=== PATIENT | male | born 1940 | race African-American/Black ===

== ENCOUNTER 2017-07-22 09:28 | Emergency (ER) | payer MEDICARE, OTHER ==
[2017-07-22] MEDS ORDERED: Albuterol Sulfate 2.5 mg/3 ml Neb ONE (10:22)
[2017-07-22] MEDS ORDERED: Sodium Chloride For Inhalation 0.9% 3 ML NEB ONE (10:23)
--- NOTE | 2017-07-22 10:38 | RAD ---
PA AND LATERAL CHEST: History: Cough. FINDINGS: Heart size is within normal limits. There are atherosclerotic changes of the aorta. Lungs are clear o f infiltrates. There are arthritic changes of the spine. IMPRESSION: No active intrathoracic disease. POS: [facility]
== END 2017-07-22 11:03 | disposition home or self-care (01) ==
LOC: SCSER 09:28
DX: J06.9 Acute upper respiratory infection, unspecified (principal); J20.9 Acute bronchitis, unspecified; I10 Essential (primary) hypertension; E78.5 Hyperlipidemia, unspecified; Z87.891 Personal history of nicotine dependence; Z79.82 Long term (current) use of aspirin; Z79.899 Other long term (current) drug therapy; Z79.891 Long term (current) use of opiate analgesic
CPT/HCPCS: 71046; 94640; 94664; J7611

== ENCOUNTER 2018-06-10 13:58 | Emergency (ER) | payer MEDICARE, OTHER ==
[2018-06-10 15:16] LABS: Bilirubin Moderate (Negative); Blood, Urine Trace (Negative); Clarity Clear (Clear); Glucose, Urine (Dipstick) Negative (Negative); Leukocyte Negative (Negative); Nitrite Negative (Negative); Protein, Urine (Dipstick) 30 mg/dL (Neg-Trace); pH, Urine 5.5 (5.0-9.0)
[2018-06-10 15:18] LABS: #Basophils 0.1 thou/uL (0.0-0.2); #Lymphocytes 1.2 thou/uL (1.20-3.40); #Monocytes 0.6 thou/uL (0.11-0.59); #Neutrophils 4.4 thou/uL (1.40-6.50); %Basophils 1.2 % (0.0-1.0); %Eosinophils 0.3 % (0.0-10.0); %Lymphocytes 19.3 % (21.0-51.0); %Monocytes 8.9 % (0.0-10.0); %Neutrophils 70.4 % (42.0-75.0); Hemoglobin 12.3 g/dL (14.0-18.0); Mean Corpuscular Hemoglobin 31.7 pg (27.0-31.0); Mean Corpuscular Volume 99.2 fL (78.0-98.0); Mean Platelet Volume 7.6 fL (7.4-10.4); Platelet Count 202 thou/uL (130-400); RBC Distribution Width 13.1 % (11.5-14.5); Red Blood Cell (RBC) Count 3.88 mill/uL (4.70-6.10); White Blood Cell (WBC) Count 6.3 thou/uL (4.8-10.8)
--- NOTE | 2018-06-10 15:22 | RAD ---
PORTABLE CHEST: History: Cough, fever. FINDINGS: Heart size and mediastinum are within normal limits. The lungs are clear of any infiltrative process. There are arthritic changes of the shoulders. IMPRESSION: No active intrathoracic disease. POS: [facility]
[2018-06-10 15:24] LABS: Specific Gravity, Urine 1.032 (1.002-1.036)
[2018-06-10 15:30] LABS: ALT (SGPT) 19 U/L (8-55); AST (SGOT) 25 U/L (5-34); Albumin 3.9 g/dL (3.4-4.8); Alkaline Phosphatase 54 U/L (40-150); Anion Gap 14 mmol/L (10-20); BUN (Urea Nitrogen) 18 mg/dL (8.4-25.7); Bilirubin, Total 1.1 mg/dL (0.2-1.2); Calc. Creatinine Clearance 0 mL/min (70-130); Calcium 9.6 mg/dL (7.8-10.44); Carbon Dioxide 29 mmol/L (23-31); Chloride 103 mmol/L (98-107); Estimated GFR-MDRD 50; Globulin 3.6 g/dL (2.4-3.5); Glucose 112 mg/dL (83-110); Potassium 3.6 mmol/L (3.5-5.1); Protein, Total 7.5 g/dL (5.8-8.1); Sodium 142 mmol/L (136-145)
[2018-06-10 15:30] LABS: Bacteria/HPF Rare-Few HPF (None Seen); Hyaline Casts/LPF 4-6 HYALINE CAST LPF (0-3 Hyaline); Other Casts/LPF 0-3 FINELY GRAN LPF (0-3 Hyaline); RBC/HPF 0-3 HPF (0-3); Squamous Epithelial 0-3 HPF (0-3)
== END 2018-06-10 15:52 | disposition home or self-care (01) ==
LOC: SCSER 13:58
DX: R19.7 Diarrhea, unspecified (principal); R53.81 Other malaise; R11.2 Nausea with vomiting, unspecified
CPT/HCPCS: 36415; 71045; 80053; 81003; 81015; 83605; 85025; 87040; 87804

== ENCOUNTER 2018-07-09 09:58 | Outpatient (CLI) | payer MEDICARE, OTHER ==
[2018-07-09 11:16] LABS: Bilirubin Negative (Negative); Blood, Urine Negative (Negative); Clarity Clear (Clear); Glucose, Urine (Dipstick) Negative (Negative); Leukocyte Negative (Negative); Nitrite Negative (Negative); Protein, Urine (Dipstick) Trace mg/dL (Neg-Trace); Specific Gravity, Urine 1.015 (1.005-1.030)
[2018-07-09 11:23] LABS: Hemoglobin 11.9 g/dL (14.0-18.0); Mean Corpuscular HGB CONC 31.2 g/dL (32.0-36.0); Mean Corpuscular Hemoglobin 32.4 pg (27.0-31.0); Mean Platelet Volume 7.8 fL (7.4-10.4); Platelet Count 182 thou/uL (130-400); RBC Distribution Width 14.2 % (11.5-14.5); Red Blood Cell (RBC) Count 3.68 mill/uL (4.70-6.10); White Blood Cell (WBC) Count 6.6 thou/uL (4.8-10.8)
[2018-07-09 11:25] LABS: ALT (SGPT) 12 U/L (8-55); AST (SGOT) 20 U/L (5-34); Albumin 3.9 g/dL (3.4-4.8); Alkaline Phosphatase 52 U/L (40-150); Anion Gap 15 mmol/L (10-20); BUN (Urea Nitrogen) 18 mg/dL (8.4-25.7); Bilirubin, Total 0.9 mg/dL (0.2-1.2); CK (CPK) 138 U/L (30-200); CRP (Inflammatory) Less than 0.50 mg/dL (= or < 0.5); Calc. Creatinine Clearance 0 mL/min (70-130); Calcium 9.4 mg/dL (7.8-10.44); Carbon Dioxide 28 mmol/L (23-31); Cardiac Risk 3.3 (Less than 4.5); Chloride 102 mmol/L (98-107); Cholesterol 247 mg/dl (< 200 Desired); Estimated GFR-MDRD 75; Globulin 3.3 g/dL (2.4-3.5); Glucose 81 mg/dL (83-110); HDL Cholesterol 74 mg/dL (>60 Neg Risk); LDL Cholesterol, Calculated 154 mg/dL; Potassium 3.9 mmol/L (3.5-5.1); Protein, Total 7.2 g/dL (5.8-8.1); Sodium 141 mmol/L (136-145); Triglycerides 93 mg/dL (Less than 150); Uric Acid 5.6 mg/dL (3.5-7.2)
--- NOTE | 2018-07-09 11:40 | RAD ---
FRONTAL VIEW CHEST: Date: 07/09/18 COMPARISON: 06/10/18. INDICATINO: Abnormal weight loss, weakness. FINDINGS: The lungs are clear. There is hyperinflation of the lungs. Cardiac silhouette is normal in size. Incidental note of small volume of air density underlying left hemidiaphragm adjacent to distended lo ops of air-filled bowel at the left upper quadrant. There is osseous degenerative change. IMPRESSION: 1. COPD. 2. Air density underlying hemidiaphragm, for which free intraperitoneal air cannot be excluded on th e basis of this exam. Recommend CT of the abdomen and pelvis for more definitive characterization. These findings were telephoned to the patient's physician, Felicita Juarez, at the time of dictatio n, 1021 hours, on 07/09/18. CODE CR. POS: [facility]
[2018-07-09 12:29] LABS: Hemoglobin A1c 5.5 % (4.0-6.0)
[2018-07-09 12:32] LABS: Free T4 (Free Thyroxine) 0.96 ng/dL (0.70-1.48); PSA-Symptomatic (DIAGNOSTIC) 0.13 ng/mL (0-4.0); Thyroid Stimulating Hormone 1.4596 uIU/mL (0.35-4.94)
[2018-07-09 12:33] LABS: Iron 51 ug/dL (65-175); Iron Binding Capacity, Total 214 mcg/dL (261-462)
[2018-07-09 12:39] LABS: Creatinine, Urine 198.19 mg/dL (63-166); Microalbumin Urine 1.5 mg/dL (0.5-50.0); Microalbumin/Creat Ratio 7.6 mg/g (Less than 30)
[2018-07-09 12:50] LABS: Ferritin 538.56 ng/mL (22-322); Syphilis Antibody Nonreactive (Nonreactive); Syphilis Antibody Index 0.05 S/CO (<1.00 Non-Reactive)
[2018-07-09 13:05] LABS: Vitamin B12 Greater than 2000 pg/mL (211-911)
[2018-07-09 15:59] LABS: ANA Symphony (Qualitative) Negative (Negative); ANA Symphony (Quantitative) Less than 0.1 Ratio (< 0.7 Negative); CCP IgG Antibody 0.9 EliAU/mL (<7 Negative); EliA RAS New Method **** NEW METHOD ****; Rheumatoid Factor IgA Antibody 2.4 IU/mL (<14 Negative); Rheumatoid Factor IgM Antibody Less than 0.5 IU/mL (<3.5 Negative); dsDNA IgG Antibody Less than 0.5 IU/mL (<10 Negative)
== END 2018-07-09 09:59 | disposition home or self-care (01) ==
LOC: SCSRAD 09:58
PROVIDERS: ATTEND Internal Medicine
DX: R63.4 Abnormal weight loss (principal); C61 Malignant neoplasm of prostate; R73.9 Hyperglycemia, unspecified; R53.83 Other fatigue; I10 Essential (primary) hypertension; E55.9 Vitamin D deficiency, unspecified; R25.1 Tremor, unspecified; C60.9 Malignant neoplasm of penis, unspecified; J44.9 Chronic obstructive pulmonary disease, unspecified; J98.6 Disorders of diaphragm; Z79.899 Other long term (current) drug therapy; Z87.891 Personal history of nicotine dependence; Z91.81 History of falling
CPT/HCPCS: 36415; 71046; 74176; 80053; 80061; 81003; 82043; 82306; 82550; 82607; 82728; 82746; 83036; 83520; 83540; 83550; 83690; 84153; 84165; 84439; 84443; 84550; 85027; 85652; 86038; 86140; 86200; 86225; 86780; 87086

== ENCOUNTER 2018-07-09 13:57 | Emergency (ER) | payer MEDICARE, OTHER ==
[2018-07-09 14:55] LABS: #Basophils 0.1 thou/uL (0.0-0.2); #Eosinphils 0.1 thou/uL (0.0-0.7); #Monocytes 0.6 thou/uL (0.11-0.59); #Neutrophils 3.6 thou/uL (1.40-6.50); %Basophils 1.4 % (0.0-1.0); %Eosinophils 1.4 % (0.0-10.0); %Lymphocytes 18.8 % (21.0-51.0); %Monocytes 11.5 % (0.0-10.0); %Neutrophils 66.9 % (42.0-75.0); Hemoglobin 10.7 g/dL (14.0-18.0); Mean Corpuscular HGB CONC 31.9 g/dL (32.0-36.0); Mean Corpuscular Hemoglobin 32.7 pg (27.0-31.0); Mean Platelet Volume 6.3 fL (7.4-10.4); Platelet Count 161 thou/uL (130-400); RBC Distribution Width 13.9 % (11.5-14.5); Red Blood Cell (RBC) Count 3.26 mill/uL (4.70-6.10); White Blood Cell (WBC) Count 5.4 thou/uL (4.8-10.8)
[2018-07-09 15:11] LABS: ALT (SGPT) 12 U/L (8-55); AST (SGOT) 18 U/L (5-34); Albumin 3.6 g/dL (3.4-4.8); Alkaline Phosphatase 48 U/L (40-150); Anion Gap 12 mmol/L (10-20); BUN (Urea Nitrogen) 18 mg/dL (8.4-25.7); Bilirubin, Total 0.8 mg/dL (0.2-1.2); Calc. Creatinine Clearance 0 mL/min (70-130); Calcium 8.9 mg/dL (7.8-10.44); Carbon Dioxide 29 mmol/L (23-31); Chloride 103 mmol/L (98-107); Estimated GFR-MDRD 71; Globulin 2.9 g/dL (2.4-3.5); Glucose 108 mg/dL (83-110); Lipase 16 U/L (8-78); Potassium 3.3 mmol/L (3.5-5.1); Protein, Total 6.5 g/dL (5.8-8.1); Sodium 141 mmol/L (136-145)
--- NOTE | 2018-07-09 16:02 | CT ---
CT ABDOMEN AND PELVIS NONCONTRAST: HISTORY: Abnormal chest radiograph. Possible free air. Chest and abdomen pain. COMPARISON: A chest radiograph was obtained earlier on the same date. FINDINGS: The lungs bases are clear. There is no free air within the peritoneal cavity. Each renal collecting system, ureter, and urinary bladder are decompressed without stone evident. Po stoperative changes of the prostate bed. Lack of contrast limits evaluation of the soft tissues. No evidence of bowel obstruction. Prominent degenerative changes of the lumbar spine. IMPRESSION: No CT evidence of free intraperitoneal gas or other acute abnormalities. The findings were called to Dr. Monsalve in the [facility] at 1540 hours. CODE CR POS: [facility]
== END 2018-07-09 15:56 | disposition home or self-care (01) ==
LOC: SCSER 13:57
DX: K59.00 Constipation, unspecified (principal); I10 Essential (primary) hypertension; E78.5 Hyperlipidemia, unspecified; Z87.891 Personal history of nicotine dependence; Z79.82 Long term (current) use of aspirin; Z79.899 Other long term (current) drug therapy
CPT/HCPCS: 36415; 74176; 83690

== ENCOUNTER 2018-07-12 10:12 | Outpatient (CLI) | payer MEDICARE, OTHER ==
--- NOTE | 2018-07-12 15:41 | NM ---
WHOLE BODY BONE SCAN: HISTORY: Malignant neoplasm of prostate, low back and hip pain. RADIOPHARMACEUTICAL: 32.3 mCi Technetium 99m-MDP injected intravenously. FINDINGS: Correlation is made with the CT abdomen and pelvis of 07/09/2018. Increased uptake in the thoracolumbar spine is consistent with degenerative changes noted on the CT s can. Focal increased uptake in the lateral aspect of the right mid lumbar spine corresponds to the b ridging osteophytes on the CT scan. Increased uptake due to degenerative changes noted in the shoulders, elbows, wrists, and feet. No ot her abnormal areas of tracer localization are seen in the skeleton to suggest osseous metastatic dise ase. Tracer excretion through the kidneys is within normal limits. IMPRESSION: No evidence of osseous metastatic disease. POS: [facility]
== END 2018-07-12 10:13 | disposition home or self-care (01) ==
LOC: NM 10:12
PROVIDERS: ATTEND Internal Medicine
DX: C61 Malignant neoplasm of prostate (principal); R63.4 Abnormal weight loss; M54.9 Dorsalgia, unspecified
CPT/HCPCS: 78306; A9503

== ENCOUNTER 2018-11-23 12:07 | Outpatient (CLI) | payer MEDICARE, OTHER ==
--- NOTE | 2018-11-25 16:26 | PFT ---
PATIENT HISTORY: HEIGHT: 71 IN WEIGHT: 187 SMOKER: NO HOW LON YRS PACKS PER DAY: 1 PRODUCTIVE COUGH: LUNG DISEASE: PHYSICIAN INTERPRETATION FINAL REPORT: Patient had fair effort and good cooperation. That being said, patient could not use the scuba moth piece so only filter was used. This could have created a leak during nitrogen washout, and patient could not get in body box for pleth testing. PFT data: FVC 3.71 (991%), FEV1 3.18 (108%), FEV1/FVC 0.86. FRC 4.45 (130%), RV 0.3.36 (125%), TLC 7.12 (107%). DLCO 12.94 (48%). The FEV1 and FVC fall with in the normal limits. The ratio is also normal suggesting there is no evidence of obstructive air flow limitation. The FRC, RV may be artifactually elevated. The Total Lung Capacity fall with in the normal limits. Diffusion capacity is reduced. IMPRESSION: Overall, these pulmonary function studies are most consistent with normal spirometry, possible air trapping, artifact needs to be considered, and moderately reduced gas exchange. Clinical and radiographic correlation for pulmonary vascular disorder should be considered. Seed Potato Cutter: ELEAZAR Data Collection Specialist: ELEAZAR PUGH
== END 2018-11-23 12:08 | disposition home or self-care (01) ==
LOC: CP 12:07
PROVIDERS: ATTEND Internal Medicine Critical Care Medicine
DX: J44.9 Chronic obstructive pulmonary disease, unspecified (principal); G47.33 Obstructive sleep apnea (adult) (pediatric)
CPT/HCPCS: 94060; 94727; 94729

== ENCOUNTER 2018-12-22 19:30 | Outpatient (CLI) | payer MEDICARE, OTHER | END 2018-12-22 19:31 | disposition home or self-care (01) | LOC: SLEEPLAB 19:30 | PROVIDERS: ATTEND Internal Medicine Critical Care Medicine | DX: G47.33 Obstructive sleep apnea (adult) (pediatric) (principal); R09.89 Other specified symptoms and signs involving the circulatory and respiratory systems; R53.83 Other fatigue | CPT/HCPCS: 95811 ==

== ENCOUNTER 2021-01-24 | Outpatient (CLI) | payer MEDICARE, OTHER | END 2021-01-24 09:57 | disposition home or self-care (01) | DX: R06.00 Dyspnea, unspecified (principal) ==

== ENCOUNTER 2021-07-09 10:49 | Outpatient (CLI) | payer MEDICARE, OTHER | END 2021-07-09 10:50 | disposition home or self-care (01) | LOC: RAD 10:49 | PROVIDERS: ATTEND Internal Medicine Critical Care Medicine | DX: R06.00 Dyspnea, unspecified (principal) | CPT/HCPCS: 71046 ==

== ENCOUNTER 2023-05-12 18:24 | Observation (INO) | payer MEDICARE, OTHER ==
[~2023-05-12 18:24] MED LIST: Iopamidol-370 76% 500 ML MDV (1 ML CHARGE) ONE
[2023-05-12 21:28] LABS: #Eosinphils 0.8 thou/uL (0.0-0.7); #Monocytes 0.7 thou/uL (0.11-0.59); #Neutrophils 5.2 thou/uL (1.40-6.50); %Basophils 0.4 % (0.0-1.0); %Lymphocytes 20.8 % (21.0-51.0); %Monocytes 8.1 % (0.0-10.0); %Neutrophils 61.5 % (42.0-75.0); Hematocrit 32.4 % (42.0-52.0); Hemoglobin 10.4 g/dL (14.0-18.0); Mean Corpuscular HGB CONC 32.1 g/dL (32.0-36.0); Mean Corpuscular Hemoglobin 31.6 pg (27.0-31.0); Mean Corpuscular Volume 98.5 fl (78.0-98.0); Mean Platelet Volume 10.3 fL (7.4-10.4); Platelet Count 248 10x3/uL (130-400); RBC Distribution Width 14.5 % (11.5-14.5); Red Blood Cell (RBC) Count 3.29 mill/uL (4.70-6.10); White Blood Cell (WBC) Count 8.5 10x3/uL (4.8-10.8)
[2023-05-12 21:55] LABS: Troponin I 0.038 ng/mL (< 0.028)
[2023-05-12 21:57] LABS: ALT (SGPT) 15 U/L (8-55); AST (SGOT) 19 U/L (5-34); Albumin 3.5 g/dL (3.4-4.8); Alkaline Phosphatase 70 U/L (40-110); Anion Gap 11 mmol/L (10-20); BUN (Urea Nitrogen) 21 mg/dL (8.4-25.7); Bilirubin, Total 0.6 mg/dL (0.2-1.2); Calc. Creatinine Clearance 0 mL/min (70-130); Calcium 8.9 mg/dL (7.8-10.44); Carbon Dioxide 30 mmol/L (23-31); Chloride 104 mmol/L (98-107); Estimated GFR 50; Globulin 4.9 g/dL (2.4-3.5); Glucose 99 mg/dL (83-110); Potassium 4.1 mmol/L (3.5-5.1); Protein, Total 8.4 g/dL (5.8-8.1); Sodium 141 mmol/L (136-145)
[2023-05-13] MEDS ORDERED: Ondansetron PF 4 MG/2 ML Vial IVP PRN (00:23)
[2023-05-13] MEDS ORDERED: Acetaminophen 325 MG TAB PO PRN (00:23)
[2023-05-13] MEDS ORDERED: Ondansetron ODT 4 MG TAB PO PRN (00:23)
[2023-05-13] MEDS ORDERED: Acetaminophen 650 MG Suppository PR PRN (00:23)
[2023-05-13] MEDS ORDERED: Lactated Ringer's 1,000 ML IV SCH (00:30)
[2023-05-13] MEDS ORDERED: Metoprolol Tartrate 5 MG/5 ML VIAL IVP PRN (00:37)
[2023-05-13] MEDS ORDERED: Metoprolol Tartrate 5 MG/5 ML VIAL IVP SCH (00:45)
[2023-05-13 02:12] VITALS: BMI 29.3
[2023-05-13] MEDS: Lactated Ringer's 1,000 ML IV SCH ×2 (02:17→13:14)
[2023-05-13 04:38] LABS: #Eosinphils 0.6 thou/uL (0.0-0.7); #Monocytes 0.6 thou/uL (0.11-0.59); #Neutrophils 4.7 thou/uL (1.40-6.50); %Basophils 0.5 % (0.0-1.0); %Eosinophils 7.9 % (0.0-10.0); %Lymphocytes 21.3 % (21.0-51.0); %Monocytes 7.3 % (0.0-10.0); %Neutrophils 62.7 % (42.0-75.0); Hematocrit 31.2 % (42.0-52.0); Hemoglobin 9.7 g/dL (14.0-18.0); Mean Corpuscular HGB CONC 31.1 g/dL (32.0-36.0); Mean Corpuscular Hemoglobin 31.3 pg (27.0-31.0); Mean Corpuscular Volume 100.6 fl (78.0-98.0); Mean Platelet Volume 10.1 fL (7.4-10.4); Platelet Count 243 10x3/uL (130-400); RBC Distribution Width 14.6 % (11.5-14.5); White Blood Cell (WBC) Count 7.6 10x3/uL (4.8-10.8)
[2023-05-13 05:04] LABS: ALT (SGPT) 13 U/L (8-55); AST (SGOT) 17 U/L (5-34); Alkaline Phosphatase 66 U/L (40-110); Anion Gap 15 mmol/L (10-20); BUN (Urea Nitrogen) 20 mg/dL (8.4-25.7); Bilirubin, Total 0.6 mg/dL (0.2-1.2); Calc. Creatinine Clearance 64 mL/min (70-130); Calcium 8.8 mg/dL (7.8-10.44); Carbon Dioxide 26 mmol/L (23-31); Chloride 105 mmol/L (98-107); Estimated GFR 57; Globulin 5.2 g/dL (2.4-3.5); Glucose 80 mg/dL (83-110); Potassium 4.2 mmol/L (3.5-5.1); Protein, Total 8.2 g/dL (5.8-8.1); Sodium 142 mmol/L (136-145)
[2023-05-13 05:08] LABS: Troponin I 0.021 ng/mL (< 0.028)
[2023-05-13] MEDS: Heparin 5,000 UNITS/ML VIAL SC SCH ×3 (09:01→21:34)
[2023-05-13] MEDS: Metoprolol Tartrate 25 MG TAB PO SCH ×2 (09:07→21:33)
[2023-05-13 10:26] LABS: Troponin I 0.027 ng/mL (< 0.028)
[2023-05-13] MEDS ORDERED: Atorvastatin Calcium 40 MG TAB PO SCH (21:00)
[2023-05-14] MEDS: Lactated Ringer's 1,000 ML IV SCH (01:08)
[2023-05-14 05:04] LABS: #Eosinphils 0.3 thou/uL (0.0-0.7); #Monocytes 0.4 thou/uL (0.11-0.59); #Neutrophils 4.8 thou/uL (1.40-6.50); %Basophils 0.4 % (0.0-1.0); %Eosinophils 4.7 % (0.0-10.0); %Monocytes 5.9 % (0.0-10.0); %Neutrophils 70.7 % (42.0-75.0); Hematocrit 32.8 % (42.0-52.0); Hemoglobin 10.5 g/dL (14.0-18.0); Mean Corpuscular Hemoglobin 31.8 pg (27.0-31.0); Mean Corpuscular Volume 99.4 fl (78.0-98.0); Mean Platelet Volume 10.8 fL (7.4-10.4); Platelet Count 227 10x3/uL (130-400); RBC Distribution Width 14.3 % (11.5-14.5); White Blood Cell (WBC) Count 6.7 10x3/uL (4.8-10.8)
[2023-05-14 06:24] LABS: Anion Gap 18 mmol/L (10-20); BUN (Urea Nitrogen) 19 mg/dL (8.4-25.7); Calc. Creatinine Clearance 69 mL/min (70-130); Calcium 8.9 mg/dL (7.8-10.44); Carbon Dioxide 21 mmol/L (23-31); Chloride 105 mmol/L (98-107); Estimated GFR 62; Glucose 75 mg/dL (83-110); Magnesium 2.3 mg/dL (1.6-2.6); Potassium 3.9 mmol/L (3.5-5.1); Sodium 140 mmol/L (136-145)
[2023-05-14] MEDS: Metoprolol Tartrate 25 MG TAB PO SCH (09:54)
[2023-05-14] MEDS: Heparin 5,000 UNITS/ML VIAL SC SCH (09:57)
[2023-05-14 12:29] VITALS: BP 153/85; TEMP 98.7
== END 2023-05-14 17:02 | disposition home health service (06) ==
LOC: ERS 18:24 → 2NO 05-13 00:08
PROVIDERS: ADMIT Family Medicine; ATTEND Internal Medicine
DX: M25.571 Pain in right ankle and joints of right foot (principal); I08.3 Combined rheumatic disorders of mitral, aortic and tricuspid valves; N17.9 Acute kidney failure, unspecified; I10 Essential (primary) hypertension; E78.5 Hyperlipidemia, unspecified; D64.9 Anemia, unspecified; N28.9 Disorder of kidney and ureter, unspecified; J44.9 Chronic obstructive pulmonary disease, unspecified; F03.90 Unspecified dementia, unspecified severity, without behavioral disturbance, psychotic disturbance, mood disturbance, and anxiety; R77.8 Other specified abnormalities of plasma proteins; R29.6 Repeated falls; Z88.0 Allergy status to penicillin; Z91.048 Other nonmedicinal substance allergy status; Z79.899 Other long term (current) drug therapy; Z87.891 Personal history of nicotine dependence; Z91.040 Latex allergy status; R60.0 Localized edema
CPT/HCPCS: 71275; 73610; 80048; 80053 ×2; 82962; 83735; 83880; 84484 ×3; 85025 ×3; 93005; 93306; 93971; 96360; 96361; 96372 ×2; 96374; 97110 ×3; 97530 ×2; 99285; G0378 ×3; 36415; 36416; J1644; J7120; Q9967